=== PATIENT | female | born 1995 | race Caucasian/White ===

== ENCOUNTER 2023-04-09 19:21 | Inpatient (IN) | payer MEDICAID, SELFPAY ==
[2023-04-09] VITALS (10 sets, daily range): BP systolic 109–137; BP diastolic 60–91; PULSE 91–114; TEMP 36.3; O2SAT 98; BMI 31.8
[2023-04-09 20:15] LABS: Basophils % 0.2 %; Eosinophils # 0.1 10^3/uL (0.0-0.8); Hematocrit 32.1 % (36-47); Lymphocytes # 1.9 10^3/uL (0.8-4.8); Lymphocytes % 15.8 %; Mean Corpuscular HGB Conc 32.7 g/dL (30-55); Mean Corpuscular Hemoglobin 28.5 pg (27-33); Mean Platelet Volume 11.4 fL (7.4-10.4); Monocytes % 8.5 %; Neutrophils # 8.92 10^3/uL (1.8-7.7); Neutrophils % 73.7 %; Nucleated Red Blood Cells % 0 %; Platelet Count 269 10^3/cmm (157-399); Red Blood Count 3.69 10^6/uL (3.85-5.65); Red Cell Distribution Width 13.4 % (12.1-15.1); White Blood Count 12.11 10^3/uL (3.29-11.43)
[2023-04-09] MEDS: miSOPROStol 100 mcg tablet 25 MCG VAGINAL (20:45)
[2023-04-10] VITALS (37 sets, daily range): BP systolic 95–164; BP diastolic 49–72; PULSE 68–106; RESP 16–17; TEMP 36.4–36.7; O2SAT 98–99
[2023-04-10] MEDS: dextrose 5%-lactated ringers 1,000 ML 125 ML IV (04:14)
[2023-04-10] MEDS: hyDROXYzine 25 mg Capsule 50 MG PO (04:15)
[2023-04-10] MEDS: oxytocin 30 UNIT/500 ML BAG IV (05:41)
[2023-04-10] MEDS: miSOPROStol 100 mcg tablet 25 MCG VAGINAL (06:52)
[2023-04-10] MEDS: lactated ringers 1,000 ML 999 ML IV (08:38)
--- NOTE | 2023-04-10 09:27 | PM.OPHPUD ---
Labor & Delivery H&P Update Date of Procedure: April 10, 2023 Date H&P Performed: 04/19/23 Changes to previous documentation: None Admission Diagnosis: Primary indication for procedure: Elective induction at 39 weeks Planned procedure: Spontaneous vaginal delivery Other information: The patient is a 4 para 3-0-0-3 at 39 weeks estimated gestational age who presented to the hospital for a elective induction. Her has been unremarkable. There have been no complications Her labs have also been relatively unremarkable. Her blood type is O+. She is rubella nonimmune. She passed her glucose screen. She is GBS negative. The remainder of her infect disease profile is within normal limits. Related Problem List Diagnoses (1) 39 weeks gestation of : A&P Assessment and plan (1) 39 weeks gestation of : I anticipate routine vaginal delivery Status: Acute
--- NOTE | 2023-04-10 09:27 | PM.DELIVERY ---
Delivery Note: Date of delivery: April 10, 2023 Pre-delivery diagnoses: 27-year-old 4 para 3-0-0-3 at 39 weeks estimated stational age presenting for induction Pre-Delivery Course: The patient presented to the hospital for induction. She received Cytotec 25 mcg x 1. She was then briefly placed on Pitocin before deciding to give her second Cytotec. An amniotomy was performed. She then quickly progressed to complete. Delivery: DELIVERY: The patient progressed to complete without difficulty. She delivered a male with a weight of 8 pounds 4 ounces with Apgars of 8, 9. The baby was delivered from the SOSA position and placed on the mother's abdomen. The cord was then clamped and cut. There was no nuchal cord. There was no meconium. The placenta and 3 vessel cord were delivered intact shortly thereafter. The perineum and vaginal vault were carefully examined. No lacerations were noted. Both the mother and the baby were in stable condition. A&P Assessment and plan (1) 39 weeks gestation of : I anticipate routine care (2) Spontaneous vaginal delivery: Coding Level of Care Code Acute Code for Chg Fwd Diagnoses 39 weeks gestation of Z3A.39 Spontaneous vaginal delivery O80
--- NOTE | 2023-04-10 11:00 | PC.NURSE ---
Mom and baby moved to room at this time.
[2023-04-10] MEDS: ibuprofen 800 mg tablet PO ×2 (15:41→20:57)
[2023-04-10] MEDS: docusate sodium 100 mg Capsule PO (17:03)
[2023-04-10 22:27] LABS: Hematocrit 32.1 % (36-47); Mean Corpuscular Hemoglobin 29.1 pg (27-33); Mean Corpuscular Volume 88.2 fl (85-98); Mean Platelet Volume 11.3 fL (7.4-10.4); Platelet Count 220 10^3/cmm (157-399); Red Blood Count 3.64 10^6/uL (3.85-5.65); Red Cell Distribution Width 13.4 % (12.1-15.1); White Blood Count 14.81 10^3/uL (3.29-11.43)
[2023-04-11 04:00] VITALS: BP 102/56; PULSE 89; RESP 16; TEMP 36.4
--- NOTE | 2023-04-11 06:57 | PM.OBGYDC ---
Discharge Providers COMMUNITY SERVICE SPECIALIST Date of Admission: 04/10/23 09:00 Date of Discharge: 04/13/23 Attending Provider at Admission: Salvador Mei MD Attending Provider at Discharge: Salvador Mei MD Primary Care Provider: Speedy Meza Diagnoses at Discharge Discharge Diagnosis (1) 39 weeks gestation of : Status: Resolved (2) Spontaneous vaginal delivery: Status: Resolved Reason for Visit Reason for Visit: Induction of Labor Information Peripartum Data: Delivery Method: Vaginal Physical Exam Narrative: The patient is alert. She appears comfortable. Her heart has a regular rate and rhythm with no murmurs appreciated. Lungs are clear to auscultation bilaterally. Her fundus is firm and below the umbilicus. Discharge Data Studies Completed and Pending Laboratory Results WBC 14.81 10^3/uL (3.29-11.43) H 04/10/23 22:08 RBC 3.64 10^6/uL (3.85-5.65) L 04/10/23 22:08 Hgb 10.60 g/dL (11.27-16.99) L 04/10/23 22:08 Hct 32.1 % (36-47) L 04/10/23 22:08 MCV 88.2 fl (85-98) 04/10/23 22:08 MCH 29.1 pg (27-33) 04/10/23 22:08 MCHC 33.0 g/dL (30-55) 04/10/23 22:08 RDW 13.4 % (12.1-15.1) 04/10/23 22:08 Plt Count 220 10^3/cmm (157-399) 04/10/23 22:08 MPV 11.3 fL (7.4-10.4) H 04/10/23 22:08 Neut % (Auto) 73.7 % 04/09/23 19:30 Lymph % (Auto) 15.8 % 04/09/23 19:30 [place] % (Auto) 8.5 % 04/09/23 19:30 Eos % (Auto) 1.0 % 04/09/23 19:30 Baso % (Auto) 0.2 % 04/09/23 19:30 Neut # (Auto) 8.92 10^3/uL (1.8-7.7) H 04/09/23 19:30 Lymph # (Auto) 1.9 10^3/uL (0.8-4.8) 04/09/23 19:30 [place] # (Auto) 1.0 10^3/uL (0.2-0.9) H 04/09/23 19:30 Eos # (Auto) 0.1 10^3/uL (0.0-0.8) 04/09/23 19:30 Baso # (Auto) 0.0 10^3/uL (0.0-0.1) 04/09/23 19:30 Nucleated RBC % (auto) 0 % 04/09/23 19:30 Nucleated RBCs # 0.0 /100WBC 04/09/23 19:30 Blood Type O Positive 04/09/23 19:30 Rho(D) Type Rh positive 04/09/23 19:30 Antibody Screen Negative 04/09/23 19:30 Vitals Last Vital Signs Temp 97.5 F L 04/11/23 04:00 Pulse 89 04/11/23 04:00 Resp 16 04/11/23 04:00 BP 102/56 04/11/23 04:00 Pulse Ox 99 04/10/23 16:15 O2 Del Method Room Air 04/11/23 04:00 Results Labs OB ([facility]): Blood Type O Positive 04/09/23 Antibody Screen Negative 04/09/23 Hct 32.1 % (36-47) L 04/10/23 Hgb 10.60 g/dL (11.27-16.99) L 04/10/23 Rho(D) Type Rh positive 04/09/23 Plt Count 220 10^3/cmm (157-399) 04/10/23 Discharge Plan Discharge Patient Disposition: Home Condition: Stable Prescriptions: Continued capsule 1 tab PO Q1D Discontinued buspirone 5 mg tablet 5 mg PO PRN PRN (Reason: Anxiety) Discharge Orders: Discharge Order (Routine); Ordered 04/11/23 Ordered By: Salvador Mei Referrals: Salvador Mei MD [Physician] - 05/23/23 10:20 am Discharge Diet: Usual diet Discharge Activity: Limit activity as instructed Patient Instructions: Depression (DC), Bleeding (DC), Preeclampsia and Eclampsia After Delivery (GEN), Hemorrhage (DC), OB Discharge Report, OB Food/Drug Interaction Guide, OB Care at Home, Opioid Safety, OB Home Care, OB Vaginal Deliveries Discharge Attestations COMMUNITY SERVICE SPECIALIST Time Spent in Discharge Care*: less than 30 min Coding Level of Care Code Acute Code for Chg Fwd Diagnoses 39 weeks gestation of Z3A.39 Spontaneous vaginal delivery O80
[2023-04-11 09:49] VITALS: BP 111/68; PULSE 75; TEMP 36.7
[2023-04-11] MEDS: ibuprofen 800 mg tablet PO (09:51)
[2023-04-11] MEDS: docusate sodium 100 mg Capsule PO (09:51)
[2023-04-11] MEDS: prenatal vitamin Capsule 1 CAP PO (09:51)
[2023-04-11 10:59] VITALS: BP 106/65; PULSE 80; TEMP 36.7
[2023-04-11 11:20] VITALS: BP 106/65; PULSE 80; TEMP 36.7
== END 2023-04-11 11:20 | disposition home or self-care (01) | DRG 807 ==
LOC: OPOB 19:21 → OBGYN 19:23
PROVIDERS: Admitting Provider Family Medicine; PCP Clinical Nurse Specialist Adult Health; Visit Provider Family Medicine
DX: O80 Encounter for full-term uncomplicated delivery (principal); Z37.0 Single live birth; Z3A.39 39 weeks gestation of pregnancy
CPT/HCPCS: 36415; 59025; 59409; 85025; 85027; 86850; 86900; 99211; G0378; J2590; J7120; J7121